=== PATIENT | male | born 1990 | race Caucasian/White ===

== ENCOUNTER → 2018-10-05 | Emergency (ER) | payer BC ==
[~2018-10-05] VITALS: Ht 182.9 cm; Wt 90.7 kg
--- NOTE | 2018-10-05 17:30 | NUR ---
at bedside to examine patient
[2018-10-05 19:05] VITALS: BP 136/69
--- NOTE | 2018-10-05 19:06 | NUR ---
DCD instructions and prescription given to pt. left room ambulatory with stead gait. vitals stable.
== END | disposition home or self-care (01) ==
LOC: ER 17:08
DX: S16.1XXA Strain of muscle, fascia and tendon at neck level, initial encounter (principal); S39.012A Strain of muscle, fascia and tendon of lower back, initial encounter; S70.11XA Contusion of right thigh, initial encounter; R51 Headache; F32.9 Major depressive disorder, single episode, unspecified; Z91.040 Latex allergy status; V89.2XXA Person injured in unspecified motor-vehicle accident, traffic, initial encounter; Y93.89 Activity, other specified; Y92.89 Other specified places as the place of occurrence of the external cause; Y99.8 Other external cause status
CPT/HCPCS: 72050; 72110; A4663